=== PATIENT | female | born 1930 | race Caucasian/White ===

== ENCOUNTER 2018-08-26 11:51 | Outpatient (CLI) | payer MEDICARE ==
[~2018-08-26] VITALS: Ht 160 cm; Wt 68.2 kg
--- NOTE | ~2018-08-26 | HEMODYNAMI ---
PATIENT:WAYLON DANIELLE MEDICAL RECORD: [id number] : [birth year] LOCATION:[facility] ADMISSION DATE: 08/26/18 Generatedon:08/26/201812:57 Patient name: WAYLON DANIELLE Patient #: [id number] SSN: : 1930 Date of study: 08/26/2018 Page: Of Hemodynamic Procedure Report Patient Data Patient Demographics Procedure consent was obtained First Name: WAYLON Gender: Female Last Name: SHASHI : 1930 Middle Initial: E Age: 87 year(s) Patient #: [id number] Race: Unknown Additional ID: [id number] Contact details [address]: [address] [place] [address] State: [place] City: [place] Zip code: [address] Past Medical History Allergies: No known allergies Admission Admission Data Admission Date: 08/26/2018 Admission Time: 11:51 Admit Source: Other Lab Results Lab Result Date: 08/26/2018 Lab Result Time: 12:20 CBC Name Units Result Min Max Hematocrit % 39.2 -*(----)-- 42 54 Hemoglobin g/dl 12.8 -*(----)-- 13.5 17.5 Procedure Procedure Types Cath Procedure Diagnostic Procedure Cardioversion External Procedure Description Procedure Date Procedure Date: 08/26/2018 Procedure Start Time: 12:49 Procedure End Time: 12:54 Procedure Staff Name Function Abdulaziz Dewitt MD Performing Physician Robby Beavers MD Additional personnel Finn Teague RT Monitor Kolby Argueta RT Architect Marine Leon Smith RN Nurse Procedure Data Cath Procedure Fluoroscopy Diagnostic fluoroscopy Total fluoroscopy Time: 0 time: 0 min min Diagnostic fluoroscopy Total fluoroscopy dose: 0 dose: 0 mGy mGy Contrast Material Contrast Material Type Amount (ml) Isovue 300 0 Estimated blood loss: 0 ml Procedure Complications No complications Procedure Medications Medication Administration Route Dosage Oxygen etCO2 Nasal cannula 4 l/min Refer to Anesthesia Notes for Sedation Medications Hemodynamics Rest Heart Rate: 75 (bpm) Snapshots Pre Cath Intra NCS Post Cath Vital Signs Time Heart Resp SPO2 etCO2 NIBP (mmHg) Rhythm Pain Sedation Rate (ipm) (%) (mmHg) Status Level (bpm) 12:47:13 100 22 86 0 Measuring NSR 0 (11) 10(A) , No pain 12:47:47 88 19 99 0 149/87(107) NSR 0 (11) 9(A) , No pain 12:52:14 51 19 100 0 136/60(113) NSR 0 (11) 10(A) , No pain 12:55:43 99 0 No Cuff NSR 0 (11) 10(A) , No pain Medications Time Medication Route Dose Verified Delivered Reason Notes Effective ness by by 12:46:15 Oxygen etCO2 4 Abdulaziz Quintero used for Nasal l/min Esdras Smith RN procedure cannula 12:46:18 Refer to Abdulaziz Leon Anesthesia Esdras Smith RN Notes for Sedation Medications Procedure Log Time Note 12:35:45 Informed consent obtained and on chart 12:35:49 Admit Source: Other 12:36:42 Leon Smith RN sent for patient. Start room use. 12:36:49 Time tracking: Regular hours (M-F 7:00 - 5:00) 12:36:52 Plan of Care:Hemodynamics will remain stable., Cardiac rhythm will remain stable., Comfort level will be maintained., Respiratory function will remain adequate., Patient/ family verbilizes understanding of procedure., Procedure tolerated without complication., Recovers from procedure without complications.. 12:37:03 H&P Date Dictated: 08/08/2019 Within 30 days and on chart., H&P Addendum completed by physician on day of procedure. (MUST COMPLETE FOR ALL OUTPATIENTS). 12:38:07 Patient NPO since Midnight. 12:38:15 Patient allergic to No known allergies 12:41:20 Patient received from Pre/Post Procedure Room to CCL 3 Alert and oriented. Tansferred to table in Supine position. 12:41:21 Warm blankets applied, and saul hugger turned on for patient comfort. 12:41:21 Correct patient and procedure confirmed by team. 12:41:23 ECG and BP/O2 sat monitors applied to patient. 12:41:31 Pre-procedure instructions explained to patient. 12:41:32 Pre-op teaching completed and patient verbalized understanding. 12:41:33 Family in waiting room. 12:41:35 Is the patient allergic to Iodine/contrast media? No. 12:41:36 Is patient on blood thinner?Yes 12:41:43 ACC The patient was administered the following blood thiners within the last 24 hours: Eliquis 12:41:45 Patient diabetic? No. 12:41:48 Previous problem with sedation/anesthesia? No ? 12:42:00 Snore? Yes 12:42:02 Sleep apnea? No 12:42:03 Deviated septum? No 12:42:04 Opens mouth fully? Yes 12:42:05 Sticks out tongue? Yes 12:42:08 Airway obstruction? No ? 12:42:11 Dentures? No ? 12:42:15 Robby Beavers MD present and monitoring patient for TIVA. 12:42:23 Quick Combo opened to sterile field. 12:42:26 Quick combo pads placed on patients chest and back. 12:42:36 Patient pain scale 0/10 ?. 12:42:39 IV patent on arrival in left forearm with 0.9% NaCl at [facility]. 12:43:25 Lab Result : Hemoglobin 12.8 g/dl 12:43:25 Lab Result : Hematocrit 39.2 % 12:43:28 Lab results completed and on chart. 12:46:15 Oxygen 4 l/min etCO2 Nasal cannula was administered by Leon Smith RN; used for procedure; 12:46:18 Refer to Anesthesia Notes for Sedation Medications was administered by Leon Smith RN; ; 12:46:40 Alarms reviewed by R. N. 12:46:41 Physician arrived 12:46:41 --------ALL STOP TIME OUT------ 12:46:45 Final Timeout: patient, procedure, and site verified with staff and physician. All members of the team are in agreement. 12:46:54 Physical assessment completed. ASA score P 3 - A patient with severe systemic disease as per Abdulaziz Dewitt MD. 12:47:08 Sedation plan: TIVA Medication:Propofol 12:47:59 Baseline sample Acquired. 12:48:04 Rhythm: atrial fibrillation 12:48:06 Full Disclosure recording started 12:49:00 Procedure started. 12:49:28 Defibrillator synced and charged to 200 Joules. 12:49:30 Shock delivered. 12:51:03 Patient cardioverted to sinus bradycardia. 12:51:05 Procedure ended.(Physican Out) 12:51:24 Fluoroscopy time 00.00 minutes. 12:51:25 Fluoroscopy dose: 0 mGy 12:51:25 Flurop Dose total: 0 12:51:28 Contrast amount:Isovue 300 0ml. 12:51:29 Sharps counted by scrub and verified by R.N. 12:51:36 Post Procedure Pulses reassessed and unchanged 12:51:40 Post-procedure physical assessment completed. ASA score P 3 - A patient with severe systemic disease as per Abdulaziz Dewitt MD. 12:51:44 Post procedure rhythm: sinus bradycardia 12:51:48 Estimated blood loss: 0 ml 12:51:49 Post procedure instruction explained to patient.Patient verbalizes understanding. 12:51:50 Patient needs reinforcement of post procedure teaching. 12:53:31 Procedure and supply charges have been captured, reviewed, submitted and are correct. 12:53:39 Procedure Complication : No complications 12:53:41 Vital chart was stopped 12:53:47 See physician's report for complete and final results. 12:53:55 Report given to Pre/Post Procedure Room. 12:53:58 Patient transfered to Pre/Post Procedure Room with Stretcher. 12:54:00 Procedure ended. 12:54:00 Full Disclosure recording stopped 12:54:05 End room use (Document Last) 12:55:08 Vital chart was started 12:57:04 Vital chart was stopped Device Usage Item Manufacture Quantity Catalog Hospital Part Current Minimal Lot# / Name Number Charge Number [facility]# Code [facility] [employer] 1 [id number] Combo Signature Audit [place] Stage Time Signature Unsigned Intra-Procedure 08/26/2018 Finn Teague 12:57:01 PM RT(R) Signatures Monitor : Finn Teague RT Signature : Date : Time : [facility] [address] [place] [address]
[2018-08-26] MEDS ORDERED: ELIQUIS5 MG PO (12:11)
[2018-08-26] MEDS ORDERED: BETAPACE 80 MG80 MG PO (12:12)
[2018-08-26] MEDS ORDERED: FUROSEMIDE20 MG PO (12:12)
[2018-08-26] MEDS ORDERED: NORVASC5 MG PO (12:13)
[2018-08-26] MEDS ORDERED: ZESTRIL40 MG PO (12:14)
[2018-08-26] MEDS ORDERED: TRAZODONE HCL100 MG PO (12:14)
[2018-08-26] MEDS ORDERED: ULTRAM50 MG PO (12:15)
[2018-08-26] MEDS ORDERED: TENORMIN50 MG PO (12:15)
[2018-08-26 12:27] VITALS: BP 158/86; Ht 160 cm; Wt 68.2 kg
[2018-08-26 12:36] LABS: BASOPHILS 0 % (0-2); EOSINOPHILS 0.9 % (0-7); HEMATOCRIT 39.2 % (36.0-48.0); HEMOGLOBIN 12.8 g/dL (12-16); LYMPHOCYTES 27.6 % (15-50); MCH 31.3 pg (26.0-34.0); MCHC 32.7 g/dL (31.0-37.0); MCV 95.8 fL (80.0-100.0); MEAN PLATELET VOLUME 9.3 fL (7.4-10.4); MONOCYTES 10.8 % (2-11); NEUTROPHILS 60.7 % (40-80); PLATELET COUNT 174 10x3/uL (130-400); RBC 4.09 10x6/uL (4.00-5.40); RDW 13.5 % (11.5-14.5); WBC 3.5 10x3/uL (4.8-10.8)
[2018-08-26 12:43] LABS: CALCIUM 8.9 mg/dL (8.5-10.1); CARBON DIOXIDE 31.6 mmol/L (21.0-32.0); CREATININE - SERUM 0.8 mg/dL (0.6-1.3); INR 1.3 (0.85-1.17); POTASSIUM - SERUM 3.6 mmol/L (3.5-5.1); PROTIME 15.6 SECONDS (11.6-15.0)
[2018-08-26 12:44] LABS: APTT 33.6 SECONDS (22.8-39.4)
--- NOTE | 2018-08-26 13:00 | NUR ---
PT RECEIVED VIA STRETCHER FROM BINDING CEMENTER [facility] CORD FOR RECOVERY. PT DROWSY BUT AWAKE TO VERBAL STIMULI. HR NSR RATE 59, BP 132/51, O2 SAT 98 PLACED ON 1L/NC O2. CALL LIGHT IN REACH, DENIES PAIN OR NEEDS. FAMILY AT BS
--- NOTE | 2018-08-26 13:15 | NUR ---
PT AWAKE VISITING WITH FAMILY, HR 54 NSR. DENIES PAIN OR NEEDS.
--- NOTE | 2018-08-26 13:32 | NUR ---
HR NSR RATE 55. DENIES PAIN OR NEEDS. FAMILY AT BEDSIDE. CALL LIGHT IN REACH.
--- NOTE | 2018-08-26 13:56 | NUR ---
DISCHARGE INSTRUCTIONS COMPLETED W PT AND DAUGHTER VERBALIZED UNDERSTANDING. MONITORS REMOVED, IV DC'D W CATH INTACT. U-P TO DRESS FOR DISCHARGE.
--- NOTE | 2018-08-26 14:05 | NUR ---
PT DISCHARGED VIA WC TO PRIVATE VEHICLE.
== END 2018-08-26 14:05 | disposition home or self-care (01) ==
LOC: D.CATH 11:51
PROVIDERS: Internal Medicine Cardiovascular Disease
DX: I48.91 Unspecified atrial fibrillation (principal)

== ENCOUNTER → 2018-10-24 12:14 | Outpatient (CLI) | payer MEDICARE ==
[2018-08-26 12:27] VITALS: BMI 26.6
[~2018-10-24 12:14] MED LIST: BETAPACE 80 MG80 MG PO; ELIQUIS5 MG PO; FUROSEMIDE20 MG PO; NORVASC5 MG PO; TENORMIN50 MG PO; TRAZODONE HCL100 MG PO; ULTRAM50 MG PO; ZESTRIL40 MG PO
== END | disposition home or self-care (01) ==
LOC: D.RAD 12:14
PROVIDERS: ATTEND Family Medicine
DX: J44.9 Chronic obstructive pulmonary disease, unspecified (principal)

== ENCOUNTER 2019-09-30 14:38 | Inpatient (IN) | payer MEDICARE ==
[~2019-09-30] VITALS: Ht 160 cm; Wt 63.5 kg
[2019-09-30 15:52] LABS: BASOPHILS 0 % (0-2); EOSINOPHILS 0 % (0-7); HEMATOCRIT 25.5 % (36.0-48.0); HEMOGLOBIN 8.4 g/dL (12-16); IMMATURE GRANULOCYTES 0.2 % (0-5); LYMPHOCYTES 8.4 % (15-50); MCH 31.2 pg (26.0-34.0); MCHC 32.9 g/dL (31.0-37.0); MCV 94.8 fL (80.0-100.0); MEAN PLATELET VOLUME 8.8 fL (7.4-10.4); MONOCYTES 5.4 % (2-11); PLATELET COUNT 173 10x3/uL (130-400); RBC 2.69 10x6/uL (4.00-5.40); RDW 15.4 % (11.5-14.5); WBC 6.3 10x3/uL (4.8-10.8)
[2019-09-30 16:22] VITALS: BP 145/76
[2019-09-30 16:33] LABS: CALC OSMOLALITY 288 mosm/kg (275-300); CALCIUM 7.8 mg/dL (8.5-10.1); CARBON DIOXIDE 30.1 mmol/L (21.0-32.0); CHLORIDE - SERUM 105 mmol/L (98-107); CREATININE - SERUM 0.7 mg/dL (0.6-1.3); POTASSIUM - SERUM 3.4 mmol/L (3.5-5.1); SODIUM 143 mmol/L (136-145); UREA NITROGEN 16 mg/dL (7-18); eGFR NON AFRICAN AMERICAN 83 mL/min (90-120)
[2019-09-30 16:39] LABS: ALBUMIN 2.9 g/dL (3.4-5.0); ALKALINE PHOSPHATASE 67 U/L (30-120); ALT (SGPT) 20 U/L (10-68); GLUCOSE 145 mg/dL (74-106); PROTEIN - SERUM 5.3 g/dL (6.4-8.2)
[2019-09-30 18:07] VITALS: BP 139/63
--- NOTE | 2019-09-30 19:00 | NUR ---
Report received from off going nurse. Pt is laying in bed watching tv. Admission assessment, history, med rec and SRS screening completed, see flowsheets for details. Pt requested her home sleep medication, paged Eunice for orders, orders received. No s/s of distress noted. Will continue to monitor.
[2019-09-30 20:01] VITALS: BP 155/65; BMI 24.8
[2019-09-30 20:06] VITALS: BP 155/65
[2019-09-30 23:52] VITALS: BP 109/49
--- NOTE | 2019-10-01 07:15 | NUR ---
RECEIVED PT IN BED AAOX4 STILLAGUAMISH RESP UNLABORED SKIN W/D COLOR PALE BRACE INTACT TO RT LED DENIES ANY PAIN AT THIS TIME
[2019-10-01 08:00] VITALS: BP 117/49
[2019-10-01 09:04] LABS: CALC OSMOLALITY 284 mosm/kg (275-300); CALCIUM 7.6 mg/dL (8.5-10.1); CARBON DIOXIDE 32.3 mmol/L (21.0-32.0); CHLORIDE - SERUM 105 mmol/L (98-107); CREATININE - SERUM 0.7 mg/dL (0.6-1.3); POTASSIUM - SERUM 3.5 mmol/L (3.5-5.1); SODIUM 142 mmol/L (136-145); UREA NITROGEN 19 mg/dL (7-18); eGFR NON AFRICAN AMERICAN 83 mL/min (90-120)
[2019-10-01 09:05] LABS: BASOPHILS 0.2 % (0-2); EOSINOPHILS 0 % (0-7); HEMATOCRIT 21.3 % (36.0-48.0); IMMATURE GRANULOCYTES 0.2 % (0-5); LYMPHOCYTES 18.8 % (15-50); MCH 30.5 pg (26.0-34.0); MCHC 31.9 g/dL (31.0-37.0); MCV 95.5 fL (80.0-100.0); MEAN PLATELET VOLUME 8.7 fL (7.4-10.4); MONOCYTES 9.6 % (2-11); NEUTROPHILS 71.2 % (40-80); PLATELET COUNT 180 10x3/uL (130-400); RBC 2.23 10x6/uL (4.00-5.40); RDW 15.8 % (11.5-14.5); WBC 5.6 10x3/uL (4.8-10.8)
[2019-10-01 09:06] LABS: GLUCOSE 90 mg/dL (74-106)
[2019-10-01 09:14] LABS: HEMOGLOBIN 6.8 g/dL (12-16)
--- NOTE | 2019-10-01 10:05 | NUR ---
#1 UNIT OF PRBCs INFUSION STARTED AT THIS TIME NO S/S OF REACTION
[2019-10-01] MEDS ORDERED: ALENDRONATE SOD35 MG PO (10:20)
[2019-10-01] MEDS ORDERED: COLACE100 MG PO (10:21)
[2019-10-01] MEDS ORDERED: TAPAZOLE 5 MG TA5 MG PO (10:23)
[2019-10-01 11:38] VITALS: BP 112/46
--- NOTE | 2019-10-01 12:30 | MORECARE ---
CASE MANAGEMENT DISCHARGE SUMMARY PATIENT: WAYLON DANIELLE UNIT: [id number] ADM DATE: 09/30/19 AGE: 88 : [birth year] SEX: F ROOM/BED: D.1204 AUTHOR: RICHARD SCALES PHYSICIAN: REFERRING PHYSICIAN: MARC FOSS DO DATE OF SERVICE: 10/01/19 Discharge Plan Patient Name: WAYLON DANIELLE Facility: [facility]:[place] : 1930 Planned Disposition: Anticipated Discharge Date: Discharge Date: Expected LOS: Initial Reviewer: [email or web address] Initial Review Date: 09/30/2019 Generated: 10/01/19 1:30 pm External Providers [facility] Contact Date: Service Request Date: Service Type: Resolution: Reviewer: Comments: Patient Name: WAYLON DANIELLE Page [phone] at 1230 All edits/amendments must be made on the electronic document DICTATION DATE: 10/01/19 1230 BLENDER LABORER: BORIS 10/01/19 1230 RPT#: [id number] DC DATE: STATUS: ADM IN [facility] [address] [place] [address] END OF REPORT
--- NOTE | 2019-10-01 12:39 | MORECARE ---
CASE MANAGEMENT DISCHARGE SUMMARY PATIENT: WAYLON DANIELLE UNIT: [id number] ADM DATE: 09/30/19 AGE: 88 : [birth year] SEX: F ROOM/BED: D.1204 AUTHOR: RICHARD SCALES PHYSICIAN: REFERRING PHYSICIAN: MARC FOSS DO DATE OF SERVICE: 10/01/19 Discharge Plan Patient Name: WAYLON DANIELLE Facility: [facility]:[place] : 1930 Planned Disposition: Anticipated Discharge Date: Discharge Date: Expected LOS: Initial Reviewer: [email or web address] Initial Review Date: 09/30/2019 Generated: 10/01/19 1:38 pm Comments DCP- Discharge Planning Updated by [email or web address]: Josephine Roy on 10/01/19 11:[address] Faxed required information to Margarita Ayon with [facility] per family request. DCPIA - Discharge Planning Initial Assessment Updated by [email or web address]: Josephine Roy on 10/01/19 12:35 pm * Is the patient Alert and Oriented? Yes * How many steps to enter\exit or inside your home? * PCP Dr. Parson * Pharmacy [facility] * Preadmission Environment Home Alone * ADLs Independent * Equipment Shower Chair Walker Wheelchair * List name and contact numbers for known caregivers / representatives who currently or will assist patient after discharge: Kendra Holbrook (dtr) [phone] * Verbal permission to speak to the caregivers and representatives has been obtained from the patient. Yes * Community resources currently utilized None * Please name any agencies selected above. [facility] upon Discharge. * Additional services required to return to the preadmission environment? No * Can the patient safely return to the preadmission environment? Yes * Has this patient been hospitalized within the prior 30 days at any hospital? No Last DP export: 10/01/19 11:30 a Patient Name: WAYLON DANIELLE Page 11278 at 1239 All edits/amendments must be made on the electronic document DICTATION DATE: 10/01/19 1238 CALL CIRCUIT WORKER: BORIS 10/01/19 1238 RPT#: [id number] DC DATE: STATUS: ADM IN [facility] [address] [place] [address] END OF REPORT
[2019-10-01 14:27] LABS: APTT 30.5 SECONDS (22.8-39.4)
[2019-10-01 14:28] LABS: INR 1.19 (0.85-1.17)
[2019-10-01 14:37] LABS: % SATURATION 9 % (15-55); IRON 26 ug/dl (35-150); TOTAL IRON BIND CAPACITY 285 ug/dl (260-445); UNSAT IRON BIND CAPACITY 259 ug/dl (150-375)
--- NOTE | 2019-10-01 15:36 | MORECARE ---
CASE MANAGEMENT DISCHARGE SUMMARY PATIENT: WAYLON DANIELLE UNIT: [id number] ADM DATE: 09/30/19 AGE: 88 : [birth year] SEX: F ROOM/BED: D.1204 AUTHOR: RICHARD SCALES PHYSICIAN: REFERRING PHYSICIAN: MARC FOSS DO DATE OF SERVICE: 10/01/19 Discharge Plan Patient Name: WAYLON DANIELLE Facility: [facility]:[place] : 1930 Planned Disposition: Anticipated Discharge Date: Discharge Date: Expected LOS: Initial Reviewer: [email or web address] Initial Review Date: 09/30/2019 Generated: 10/01/19 4:35 pm Comments DCP- Discharge Planning Updated by [email or web address]: Josephine Roy on 10/01/19 2:[address] CM met with patient to discuss initial discharge planning. Patient is in agreement to proceed with the assessment with her daughter present. Patient reports that she lives at home independently. Patient is alert/oriented, drowsy. Stairs/steps: 0. PCP: Dr. Parson. [facility]acy[facility]. Patient states she have been able to obtain all of her prescribed medications. HHS: No. DME: Walker, w/c, shower chair. Patient gives permission to speak with family members/care givers. Emergency contact: Kendra Holbrook (dtr POA) [phone]. 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 CM discussed the availability of HH, Rehab, DME services. Patient's daughter request [facility] for Dc plan. Patient's insurance will require prior authorization. Patient denies being hospitalized within the past 30 days. Patient denies the use of community resources WEB ASSISTANT. Transportation at time of discharge: Facility. CM will assist with DC plans/needs PRN. DCP- Discharge Planning Updated by [email or web address]: Josephine Roy on 10/01/19 11:[address] Faxed required information to Margarita Ayon with [facility] per family request. DCPIA - Discharge Planning Initial Assessment Updated by [email or web address]: Josephine Roy on 10/01/19 12:35 pm * Is the patient Alert and Oriented? Yes * How many steps to enter\exit or inside your home? * PCP Dr. Parson * Pharmacy [facility] * Preadmission Environment Home Alone * ADLs Independent * Equipment Shower Chair Walker Wheelchair * List name and contact numbers for known caregivers / representatives who currently or will assist patient after discharge: Kendra Holbrook (dtr) [phone] * Verbal permission to speak to the caregivers and representatives has been obtained from the patient. Yes * Community resources currently utilized None * Please name any agencies selected above. [facility] Dis[facility]. * Additional services required to return to the preadmission environment? No * Can the patient safely return to the preadmission environment? Yes * Has this patient been hospitalized within the prior 30 days at any hospital? No Last DP export: 10/01/19 11:39 a Patient Name: WAYLON DANIELLE Page [id number] at 1536 All edits/amendments must be made on the electronic document DICTATION DATE: 10/01/191534 HOSE BUILDER: BORIS 10/01/191534 RPT#: [id number] DC DATE: STATUS: ADM IN [facility] [address] [place] [address] END OF REPORT
[2019-10-01 15:49] LABS: APPEARANCE CLEAR (CLEAR); BILIRUBIN NEGATIVE (NEGATIVE); COLOR YELLOW (YELLOW); GLUCOSE NEGATIVE (NEGATIVE); KETONE NEGATIVE (NEGATIVE); NITRITE NEGATIVE (NEGATIVE); PROTEIN NEGATIVE (NEGATIVE); UROBILINOGEN NORMAL (NORMAL)
[2019-10-01 15:52] LABS: BACTERIA MODERATE /hpf (NEGATIVE); EPITHELIAL CELLS 0-5 /hpf (0-5); RED CELLS - URINE OCC /hpf (0-5); WHITE CELLS - URINE 25-50 /hpf (NEGATIVE)
--- NOTE | 2019-10-01 16:04 | NUR ---
Rehab Prescreening Consult recieved and the chart has been reviewed. She is managed Medicare with [facility] and will require a preauth for rehab. She has a PT and an OT eval ordered but pending. Once completed all information will be submitted to [facility] for their review. Irina Apple RN Clinical Liaison, Rehab
[2019-10-01 19:56] VITALS: BP 119/60
--- NOTE | 2019-10-01 20:00 | NUR ---
RESTING IN BED DENIES PAIN OR NEEDS AT THIS TIME, IMOBLIZER BRACE IN PLACE TO RIGHT LEG, SEE SHIFT ASSESSMENT, CALL LIGHT IN REACH
[2019-10-02 00:04] VITALS: BP 130/60
[2019-10-02 04:30] VITALS: BP 139/59
--- NOTE | 2019-10-02 07:40 | NUR ---
SHE IS PLEASENTLY CONFUSED THIS MORNING. HAS A BRACE TO THE RT LEG. NO IV. SHE IS ASKING FOR A SLEEPING PILL. THE BED ALARM IS ON AND IN PLACE, THE CALL LIGHT IS WITHIN REACH.
[2019-10-02 07:49] VITALS: BP 137/54
[2019-10-02 07:55] LABS: BASOPHILS 0 % (0-2); EOSINOPHILS 0 % (0-7); IMMATURE GRANULOCYTES 0.2 % (0-5); LYMPHOCYTES 12.4 % (15-50); MCH 30.5 pg (26.0-34.0); MCHC 33.1 g/dL (31.0-37.0); MEAN PLATELET VOLUME 8.7 fL (7.4-10.4); MONOCYTES 12.2 % (2-11); NEUTROPHILS 75.2 % (40-80); RDW 16.3 % (11.5-14.5); WBC 5.3 10x3/uL (4.8-10.8)
[2019-10-02 08:09] LABS: ALBUMIN 2.7 g/dL (3.4-5.0); ANION GAP 6.8 mmol/L (8-16); BILIRUBIN - TOTAL 0.9 mg/dL (0.2-1.3); CALCIUM 7.7 mg/dL (8.5-10.1); CARBON DIOXIDE 32.6 mmol/L (21.0-32.0); CREATININE - SERUM 0.8 mg/dL (0.6-1.3); MAGNESIUM - SERUM 2.1 mg/dL (1.8-2.4); POTASSIUM - SERUM 3.4 mmol/L (3.5-5.1); PROTEIN - SERUM 5.2 g/dL (6.4-8.2)
[2019-10-02 08:19] LABS: HEMATOCRIT 27.5 % (36.0-48.0); HEMOGLOBIN 9.1 g/dL (12-16); MCV 92.3 fL (80.0-100.0); PLATELET COUNT 141 10x3/uL (130-400); RBC 2.98 10x6/uL (4.00-5.40)
--- NOTE | 2019-10-02 08:24 | MORECARE ---
CASE MANAGEMENT DISCHARGE SUMMARY PATIENT: WAYLON DANIELLE UNIT: [id number] ADM DATE: 09/30/19 AGE: 88 : [birth year] SEX: F ROOM/BED: D.1204 AUTHOR: RICHARD SCAELS PHYSICIAN: REFERRING PHYSICIAN: MARC FOSS DO DATE OF SERVICE: 10/02/19 Discharge Plan Patient Name: WAYLON DANIELLE Facility: [facility]:[place] : 1930 Planned Disposition: Anticipated Discharge Date: Discharge Date: Expected LOS: Initial Reviewer: [email or web address] Initial Review Date: 09/30/2019 Generated: 10/02/19 9:24 am Comments DCP- Discharge Planning Updated by [email or web address]: Josephine Roy on 10/01/19 2:[address] CM met with patient to discuss initial discharge planning. Patient is in agreement to proceed with the assessment with her daughter present. Patient reports that she lives at home independently. Patient is alert/oriented, drowsy. Stairs/steps: 0. PCP: Dr. Parson. [facility]acy[facility]. Patient states she have been able to obtain all of her prescribed medications. HHS: No. DME: Walker, w/c, shower chair. Patient gives permission to speak with family members/care givers. Emergency contact: Kendra Holbrook (dtr POA) [phone]. 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 CM discussed the availability of HH, Rehab, DME services. Patient's daughter request [facility] for Dc plan. Patient's insurance will require prior authorization. Patient denies being hospitalized within the past 30 days. Patient denies the use of community resources MACHINE CHOCOLATE MOLDER. Transportation at time of discharge: Facility. CM will assist with DC plans/needs PRN. DCP- Discharge Planning Updated by [email or web address]: Josephine Roy on 10/01/19 11:[address] Faxed required information to Margarita Ayon with [facility] per family request. DCPIA - Discharge Planning Initial Assessment Updated by [email or web address]: Josephine Roy on 10/01/19 12:35 pm * Is the patient Alert and Oriented? Yes * How many steps to enter\exit or inside your home? * PCP Dr. Parson * Pharmacy [facility] * Preadmission Environment Home Alone * ADLs Independent * Equipment Shower Chair Walker Wheelchair * List name and contact numbers for known caregivers / representatives who currently or will assist patient after discharge: Kendra Holbrook (dtr) [phone] * Verbal permission to speak to the caregivers and representatives has been obtained from the patient. Yes * Community resources currently utilized None * Please name any agencies selected above. [facility] Dis[facility]. * Additional services required to return to the preadmission environment? No * Can the patient safely return to the preadmission environment? Yes * Has this patient been hospitalized within the prior 30 days at any hospital? No Last DP export: 10/01/19 2:36 p Patient Name: WAYLON DANIELLE Page [phone] at 0824 All edits/amendments must be made on the electronic document DICTATION DATE: 10/02/19823 CLOSET BUILDER: BORIS 10/02/19823 RPT#: [id number] DC DATE: STATUS: ADM IN [facility] [address] [place] [address] END OF REPORT
--- NOTE | 2019-10-02 11:30 | NUR ---
IV REMOVED, DISCHARGE PAPERWORK GONE OVER. TAKEN OUT BY WHEELCHAIR.
--- NOTE | 2019-10-02 11:39 | MORECARE ---
CASE MANAGEMENT DISCHARGE SUMMARY PATIENT: WAYLON DANIELLE UNIT: [id number] ADM DATE: 09/30/19 AGE: 88 : [birth year] SEX: F ROOM/BED: D.1204 AUTHOR: RICHARD SCALES PHYSICIAN: REFERRING PHYSICIAN: MARC FOSS DO DATE OF SERVICE: 10/02/19 Discharge Plan Patient Name: WAYLON DANIELLE Facility: [facility]:[place] : 1930 Planned Disposition: Anticipated Discharge Date: Discharge Date: Expected LOS: Initial Reviewer: [email or web address] Initial Review Date: 09/30/2019 Generated: 10/02/19 12:38 pm DCP- Discharge Planning Updated by [email or web address]: Josephine Roy on 10/01/19 2:[address] CM met with patient to discuss initial discharge planning. Patient is in agreement to proceed with the assessment with her daughter present. Patient reports that she lives at home independently. Patient is alert/oriented, drowsy. Stairs/steps: 0. PCP: Dr. Parson. [facility]acy: [facility]. Patient states she have been able to obtain all of her prescribed medications. HHS: No. DME: Walker, w/c, shower chair. Patient gives permission to speak with family members/care givers. Emergency contact: Kendra Holbrook (dtr POA) [phone]. 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 CM discussed the availability of HH, Rehab, DME services. Patient's daughter request [facility] for Dc plan. Patient's insurance will require prior authorization. Patient denies being hospitalized within the past 30 days. 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 Transportation at time of discharge: Facility. CM will assist with DC plans/needs PRN. DCP- Discharge Planning Updated by [email or web address]: Josephine Roy on 10/01/19 11:[address] Faxed required information to Margarita Ayon with [facility] per family request. DCPIA - Discharge Planning Initial Assessment Updated by [email or web address]: Josephine Roy on 10/01/19 12:35 pm * Is the patient Alert and Oriented? Yes * How many steps to enter\exit or inside your home? * PCP Dr. Parson * Pharmacy [facility] * Preadmission Environment Home Alone * ADLs Independent * Equipment Shower Chair Walker Wheelchair * List name and contact numbers for known caregivers / representatives who currently or will assist patient after discharge: Kendra Holbrook (dtr) [phone] * Verbal permission to speak to the caregivers and representatives has been obtained from the patient. Yes * Community resources currently utilized None * Please name any agencies selected above. [facility] Dis[facility]. * Additional services required to return to the preadmission environment? No * Can the patient safely return to the preadmission environment? Yes * Has this patient been hospitalized within the prior 30 days at any hospital? No Last DP export: 10/02/19 7:24 a Patient Name: WAYLON DANIELLE Page [id number] at 1139 All edits/amendments must be made on the electronic document DICTATION DATE: 10/02/191137 TITLE AGENT: BORIS 10/02/198 RPT#: [id number] DC DATE: STATUS: ADM IN [facility] [address] [place] [address] END OF REPORT
[2019-10-02 11:50] VITALS: BP 171/85
--- NOTE | 2019-10-02 15:56 | MORECARE ---
CASE MANAGEMENT DISCHARGE SUMMARY PATIENT: WAYLON DANIELLE UNIT: [id number] ADM DATE: 09/30/19 AGE: 88 : [birth year] SEX: F ROOM/BED: D.1204 AUTHOR: RICHARD SCALES PHYSICIAN: REFERRING PHYSICIAN: MARC FOSS DO DATE OF SERVICE: 10/02/19 Discharge Plan Patient Name: WAYLON DANIELLE Facility: [facility]:[place] : 1930 Planned Disposition: Anticipated Discharge Date: Discharge Date: Expected LOS: Initial Reviewer: [id number] Initial Review Date: 09/30/2019 Generated: 10/02/19 4:55 pm DCP- Discharge Planning Updated by [email or web address]: Josephine Roy on 10/01/19 2:[address] CM met with patient to discuss initial discharge planning. Patient is in agreement to proceed with the assessment with her daughter present. Patient reports that she lives at home independently. Patient is alert/oriented, drowsy. Stairs/steps: 0. PCP: Dr. Parson. Pharmacy: [facility]. Patient states she have been able to obtain all of her prescribed medications. HHS: No. DME: Walker, w/c, shower chair. Patient gives permission to speak with family members/care givers. Emergency contact: Kendra Holbrook (dtr POA) [phone]. 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 CM discussed the availability of HH, Rehab, DME services. Patient's daughter request [facility] for Dc plan. Patient's insurance will require prior authorization. Patient denies being hospitalized within the past 30 days. Patient denies the use of community resources CROWN AND BRIDGE TECHNICIAN. Transportation at time of discharge: Facility. CM will assist with DC plans/needs PRN. DCP- Discharge Planning Updated by [id number]: Josephine Roy on 10/01/19 11:[address] Faxed required information to Margarita Ayon with [facility] per family request. DCPIA - Discharge Planning Initial Assessment Updated by [email or web address]: Josephine Roy on 10/01/19 12:35 pm * Is the patient Alert and Oriented? Yes * How many steps to enter\exit or inside your home? * PCP Dr. Parson * Pharmacy [facility] * Preadmission Environment Home Alone * ADLs Independent * Equipment Shower Chair Walker Wheelchair * List name and contact numbers for known caregivers / representatives who currently or will assist patient after discharge: Kendra Holbrook (dtr) [phone] * Verbal permission to speak to the caregivers and representatives has been obtained from the patient. Yes * Community resources currently utilized None * Please name any agencies selected above. [facility]. * Additional services required to return to the preadmission environment? No * Can the patient safely return to the preadmission environment? Yes * Has this patient been hospitalized within the prior 30 days at any hospital? No Coverage Notice Reviewer: [id number] Susannah Thomas Notice Issued Date-Time: 09/30/2019 16:01 Notice Type: IM Admission Notice Notice Delivered To: Patient Relationship to Patient: Butcher Or Smallgoods Maker Name: Delivery Method: HAND - Hand Delivered Evelina Days: Prior Verbal Notification: Recipient Understood Notice: Recipient Signature: Med Rec Note Co-signed by Attending: Coverage Notice Comment: signed in the ER. Last DP export: 10/02/19 10:39 a Patient Name: WAYLON DANIELLE Page [id number] at 1556 All edits/amendments must be made on the electronic document DICTATION DATE: 10/02/191554 INSIDE SALES RECRUITER: BORIS 10/02/191554 RPT#: [id number] DC DATE: STATUS: ADM IN [facility] [address] [place] [address] END OF REPORT
[2019-10-02 16:21] VITALS: Ht 160 cm; Wt 63.5 kg
--- NOTE | 2019-10-02 16:37 | NUR ---
OT NOTE: PT COMPLETED BED MOB TASKS WITH MOD A X2. PT COMPLETED SIT TO STAND WITH MOD A XS AND MAINTAINED WT BEARING STATUS. PT COMPLETED BATHING TASKS WITH MOD A. [address] D[address]SHANA LE[address]OTA
[2019-10-02 16:49] VITALS: BP 148/70
--- NOTE | 2019-10-02 17:11 | MORECARE ---
CASE MANAGEMENT DISCHARGE SUMMARY PATIENT: WAYLON DANIELLE UNIT: [id number] ADM DATE: 09/30/19 AGE: 88 : [birth year] SEX: F ROOM/BED: D.1204 AUTHOR: RICHARD SCALES PHYSICIAN: REFERRING PHYSICIAN: MARC FOSS DO DATE OF SERVICE: 10/02/19 Discharge Plan Patient Name: WAYLON DANIELLE Facility: [facility]:[place] : 1930 Planned Disposition: Anticipated Discharge Date: Discharge Date: Expected LOS: Initial Reviewer: [email or web address] Initial Review Date: 09/30/2019 Generated: 10/02/19 6:11 pm DCP- Discharge Planning Updated by [id number]: Josephine Roy on 10/01/19 2:[address] CM met with patient to discuss initial discharge planning. Patient is in agreement to proceed with the assessment with her daughter present. Patient reports that she lives at home independently. Patient is alert/oriented, drowsy. Stairs/steps: 0. PCP: Dr. Parson. Pharmacy: [facility]. Patient states she have been able to obtain all of her prescribed medications. HHS: No. DME: Walker, w/c, shower chair. Patient gives permission to speak with family members/care givers. Emergency contact: Kendra Holbrook (dtr POA) [phone]. 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 CM discussed the availability of HH, Rehab, DME services. Patient's daughter request [facility] for Dc plan. Patient's insurance will require prior authorization. Patient denies being hospitalized within the past 30 days. Patient denies the use of community resources TELEGRAPH SERVICE RATER. Transportation at time of discharge: Facility. CM will assist with DC plans/needs PRN. DCP- Discharge Planning Updated by [id number]: Josephine Roy on 10/01/19 11:[address] Faxed required information to Margarita Ayon with [facility] per family request. DCPIA - Discharge Planning Initial Assessment Updated by [email or web address]: Josephine Roy on 10/01/19 12:35 pm * Is the patient Alert and Oriented? Yes * How many steps to enter\exit or inside your home? * PCP Dr. Parson * Pharmacy [facility] * Preadmission Environment Home Alone * ADLs Independent * Equipment Shower Chair Walker Wheelchair * List name and contact numbers for known caregivers / representatives who currently or will assist patient after discharge: Kendra Holbrook (dtr) [phone] * Verbal permission to speak to the caregivers and representatives has been obtained from the patient. Yes * Community resources currently utilized None * Please name any agencies selected above. [facility]. * Additional services required to return to the preadmission environment? No * Can the patient safely return to the preadmission environment? Yes * Has this patient been hospitalized within the prior 30 days at any hospital? No Coverage Notice Reviewer: [id number] Susannah Thomas Notice Issued Date-Time: 09/30/2019 16:01 Notice Type: IM Admission Notice Notice Delivered To: Patient Relationship to Patient: Apparatus Operator Name: Delivery Method: HAND - Hand Delivered Evelina Days: Prior Verbal Notification: Recipient Understood Notice: Recipient Signature: Med Rec Note Co-signed by Attending: Coverage Notice Comment: signed in the ER. Last DP export: 10/02/19 2:56 p Patient Name: WAYLON DANIELLE Page [id number] at 1711 All edits/amendments must be made on the electronic document DICTATION DATE: 10/02/191710 SR. STRATEGIC SOURCING MANAGER: BORIS 10/02/191710 RPT#: [id number] DC DATE: STATUS: ADM IN [facility] [address] [place] [address] END OF REPORT
--- NOTE | 2019-10-02 18:08 | NUR ---
BRACE TO THE RIGHT LEG, DENIES ANY NEED. USING THE BEDPAN WHEN NEEDING.
--- NOTE | 2019-10-02 20:00 | NUR ---
ALERT RESTING IN BED, IMOBLIZER IN PLACE TO RIGHT LEG, DENIES PAIN OR NEEDS AT THIS TIME, SEE SHIFT ASSESSMENT, CALL LIGHT IN REACH
[2019-10-02 20:42] VITALS: BP 141/68
[2019-10-03 00:33] VITALS: BP 145/74
[2019-10-03 04:39] VITALS: BP 134/62
[2019-10-03 07:23] VITALS: BP 134/68
[2019-10-03 07:40] LABS: BASOPHILS 0 % (0-2); EOSINOPHILS 0 % (0-7); HEMOGLOBIN 8.7 g/dL (12-16); IMMATURE GRANULOCYTES 0.3 % (0-5); LYMPHOCYTES 11.4 % (15-50); MCH 30.3 pg (26.0-34.0); MCHC 32.2 g/dL (31.0-37.0); MCV 94.1 fL (80.0-100.0); MEAN PLATELET VOLUME 9.1 fL (7.4-10.4); MONOCYTES 13.1 % (2-11); NEUTROPHILS 75.2 % (40-80); RBC 2.87 10x6/uL (4.00-5.40); RDW 15.7 % (11.5-14.5); WBC 6.5 10x3/uL (4.8-10.8)
[2019-10-03 07:51] LABS: ALBUMIN 2.5 g/dL (3.4-5.0); ALKALINE PHOSPHATASE 62 U/L (30-120); ALT (SGPT) 12 U/L (10-68); BILIRUBIN - TOTAL 1.31 mg/dL (0.2-1.3); CALC OSMOLALITY 270 mosm/kg (275-300); CALCIUM 7.7 mg/dL (8.5-10.1); CARBON DIOXIDE 30.8 mmol/L (21.0-32.0); CHLORIDE - SERUM 101 mmol/L (98-107); CREATININE - SERUM 0.7 mg/dL (0.6-1.3); GLUCOSE 98 mg/dL (74-106); POTASSIUM - SERUM 3.6 mmol/L (3.5-5.1); PROTEIN - SERUM 5.3 g/dL (6.4-8.2); SODIUM 135 mmol/L (136-145); UREA NITROGEN 15 mg/dL (7-18); eGFR NON AFRICAN AMERICAN 83 mL/min (90-120)
[2019-10-03 07:56] LABS: PLATELET COUNT 176 10x3/uL (130-400)
--- NOTE | 2019-10-03 08:36 | NUR ---
PT RESTING IN BED, FINISHING BREAKFAST. RESP EVEN AND UNLABORED. PT REPORTS PAIN 5/10 AT THIS TIME. SALINE LOC TO LEFT FOREARM. SITE WITHOUT REDNESS OR EDEMA. PPPX 4. INTERNAL ROTATION NOTED TO LEFT LOWER EXTREMITY. PT DENIES FURTHER NEEDS AT THIS TIME. CL WITHIN REACH. ENCOURAGED TO CALL WITH NEEDS. CONTINUE POC
[2019-10-03 11:20] VITALS: BP 135/58
--- NOTE | 2019-10-03 11:41 | MORECARE ---
CASE MANAGEMENT DISCHARGE SUMMARY PATIENT: WAYLON DANIELLE UNIT: [id number] ADM DATE: 09/30/19 AGE: 88 : [birth year] SEX: F ROOM/BED: D.1204 AUTHOR: YORDY,DOC PHYSICIAN: REFERRING PHYSICIAN: MARC OFSS DO DATE OF SERVICE: 10/03/19 Discharge Plan Patient Name: WAYLON DANIELLE Facility: [facility]:[place] : 1930 Planned Disposition: Anticipated Discharge Date: Discharge Date: Expected LOS: Initial Reviewer: [id number] Initial Review Date: 09/30/2019 Generated: 10/03/19 12:40 pm Comments DCP- Discharge Planning Updated by [id number]: Josephine Roy on 10/03/19 10:[address] CM contacted Margarita B. this morning, the prior authorization for the patient's insurance was sent in 10/02, but she has not heard back from them as yet. DCP- Discharge Planning Updated by [email or web address]: Josephine Roy on 10/01/19 2:[address] CM met with patient to discuss initial discharge planning. Patient is in agreement to proceed with the assessment with her daughter present. Patient reports that she lives at home independently. Patient is alert/oriented, drowsy. Stairs/steps: 0. PCP: Dr. Parson. Pharmacy: [facility]. Patient states she have been able to obtain all of her prescribed medications. HHS: No. DME: Walker, w/c, shower chair. Patient gives permission to speak with family members/care givers. Emergency contact: Kendra Holbrook (dtr POA) [phone]. Patient is Independent with all ADL's, medication management CROWN POUNCER. CM discussed the availability of HH, Rehab, DME services. Patient's daughter request [facility] re[facility] for Dc plan. Patient's insurance will require prior authorization. Patient denies being hospitalized within the past 30 days. Patient denies the use of community resources CROWN POUNCER. Transportation at time of discharge: Facility. CM will assist with DC plans/needs PRN. DCP- Discharge Planning Updated by [email or web address]: Josephine Roy on 10/01/19 11:[address] Faxed required information to Margarita Ayon with [facility] per family request. DCPIA - Discharge Planning Initial Assessment Updated by [id number]: Josephine Roy on 10/01/19 12:35 pm * Is the patient Alert and Oriented? Yes * How many steps to enter\exit or inside your home? * PCP Dr. Parson * Pharmacy [facility] * Preadmission Environment Home Alone * ADLs Independent * Equipment Shower Chair Walker Wheelchair * List name and contact numbers for known caregivers / representatives who currently or will assist patient after discharge: Kendra Holbrook (dtr) [phone] * Verbal permission to speak to the caregivers and representatives has been obtained from the patient. Yes * Community resources currently utilized None * Please name any agencies selected above. [facility]. * Additional services required to return to the preadmission environment? No * Can the patient safely return to the preadmission environment? Yes * Has this patient been hospitalized within the prior 30 days at any hospital? No Coverage Notice Reviewer: [id number] Susannah Thomas Notice Issued Date-Time: 09/30/2019 16:01 Notice Type: IM Admission Notice Notice Delivered To: Patient Relationship to Patient: Biztalk Software Developer Name: Delivery Method: HAND - Hand Delivered Evelina Days: Prior Verbal Notification: Recipient Understood Notice: Recipient Signature: Med Rec Note Co-signed by Attending: Coverage Notice Comment: signed in the ER. Last DP export: 10/02/19 4:11 p Patient Name: WAYLON DANIELEL Page [id number] at 1141 All edits/amendments must be made on the electronic document DICTATION DATE: 10/03/19 1140 METAL TILE LATHER: BORIS 10/03/19 1140 RPT#: [id number] DC DATE: STATUS: ADM IN [facility] [address] [place] [address] END OF REPORT
--- NOTE | 2019-10-03 13:16 | MORECARE ---
CASE MANAGEMENT DISCHARGE SUMMARY PATIENT: WAYLON DANIELLE UNIT: [id number] ADM DATE: 09/30/19 AGE: 88 : [birth year] SEX: F ROOM/BED: D.1204 AUTHOR: RICHARD SCALES PHYSICIAN: REFERRING PHYSICIAN: MARC FOSS DO DATE OF SERVICE: 10/03/19 Discharge Plan Patient Name: WAYLON DANIELLE Facility: [facility]:[place] : 1930 Planned Disposition: Anticipated Discharge Date: Discharge Date: Expected LOS: Initial Reviewer: [email or web address] Initial Review Date: 09/30/2019 Generated: 10/03/19 2:15 pm Comments DCP- Discharge Planning Updated by [id number]: Josephine Roy on 10/03/19 12:[address] Telephone call from [place], with patient's insurance and patient has been authorized to go into a skilled bed at [facility]hab. Auth #[id number]. The nursing facility cannot pick pulling machine operator today, but will pick pulling machine operator tomorrow @10:00. Patient will go into 303 and report can be called to [phone]. Patient will discharge to a Skilled bed. DCP- Discharge Planning Updated by [id number]: Josephine Roy on 10/03/19 10:[address] CM contacted Margarita Borges. this morning, the prior authorization for the patient's insurance was sent in 10/02, but she has not heard back from them as yet. DCP- Discharge Planning Updated by [email or web address]: Josephine Roy on 10/01/19 2:[address] CM met with patient to discuss initial discharge planning. Patient is in agreement to proceed with the assessment with her daughter present. Patient reports that she lives at home independently. Patient is alert/oriented, drowsy. Stairs/steps: 0. PCP: Dr. Parson. [facility]acy[facility]. Patient states she have been able to obtain all of her prescribed medications. HHS: No. DME: Hardeep, w/c, shower chair. Patient gives permission to speak with family members/care givers. Emergency contact: Kendra Holbrook (dtr POA) [phone]. 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 CM discussed the availability of HH, Rehab, DME services. Patient's daughter request [facility] for Dc plan. Patient's insurance will require prior authorization. Patient denies being hospitalized within the past 30 days. Patient denies the use of community resources CRIMINAL JUSTICE TEACHER. Transportation at time of discharge: Facility. CM will assist with DC plans/needs PRN. DCP- Discharge Planning Updated by [id number]: Josephine Roy on 10/01/19 11:[address] Faxed required information to Margarita Ayon with [facility] per family request. DCPIA - Discharge Planning Initial Assessment Updated by [email or web address]: Josephine Roy on 10/01/19 12:35 pm * Is the patient Alert and Oriented? Yes * How many steps to enter\exit or inside your home? * PCP Dr. Parson * [facility] * Preadmission Environment Home Alone * ADLs Independent * Equipment Shower Chair Walker Wheelchair * List name and contact numbers for known caregivers / representatives who currently or will assist patient after discharge: Kendra Holbrook (dtr) [phone] * Verbal permission to speak to the caregivers and representatives has been obtained from the patient. Yes * Community resources currently utilized None * Please name any agencies selected above. [facility]. * Additional services required to return to the preadmission environment? No * Can the patient safely return to the preadmission environment? Yes * Has this patient been hospitalized within the prior 30 days at any hospital? No Coverage Notice Reviewer: [id number] Susannah Thomas Notice Issued Date-Time: 09/30/2019 16:01 Notice Type: IM Admission Notice Notice Delivered To: Patient Relationship to Patient: Commission Sales Associate Name: Delivery Method: HAND - Hand Delivered Evelina Days: Prior Verbal Notification: Recipient Understood Notice: Recipient Signature: Med Rec Note Co-signed by Attending: Coverage Notice Comment: signed in the ER. Last DP export: 10/03/19 10:41 a Patient Name: WAYLON DANIELLE Page [id number] at 1316 All edits/amendments must be made on the electronic document DICTATION DATE: 10/03/19 1315 LUNCHROOM ATTENDANT: BORIS 10/03/19 1315 RPT#: [id number] DC DATE: STATUS: ADM IN [facility] [address] [facility] [place] [address] END OF REPORT
--- NOTE | 2019-10-03 13:25 | MORECARE ---
CASE MANAGEMENT DISCHARGE SUMMARY PATIENT: WAYLON DANIELLE UNIT: [id number] ADM DATE: 09/30/19 AGE: 88 : [birth year] SEX: F ROOM/BED: D.1204 AUTHOR: RICHARD SCALES PHYSICIAN: REFERRING PHYSICIAN: MARC FOSS DO DATE OF SERVICE: 10/03/19 Discharge Plan Patient Name: WAYLON DANIELLE Facility: [facility]:[place] : 1930 Planned Disposition: Anticipated Discharge Date: Discharge Date: Expected LOS: Initial Reviewer: [id number] Initial Review Date: 09/30/2019 Generated: 10/03/19 2:24 pm Comments DCP- Discharge Planning Updated by [email or web address]: Josephine Roy on 10/03/19 12:[address] Telephone call from [place], with patient's insurance and patient has been authorized to go into a skilled bed at [facility]hab. Auth #[id number]. The nursing facility cannot pickle water pump operator today, but will pickle water pump operator tomorrow @10:00. Patient will go into 303 and report can be called to [phone]. Patient will discharge to a Skilled bed. DCP- Discharge Planning Updated by [id number]: Josephine Roy on 10/03/19 10:[address] CM contacted Margarita Borges. this morning, the prior authorization for the patient's insurance was sent in 10/02, but she has not heard back from them as yet. DCP- Discharge Planning Updated by [id number]: Josephine Roy on 10/01/19 2:[address] CM met with patient to discuss initial discharge planning. Patient is in agreement to proceed with the assessment with her daughter present. Patient reports that she lives at home independently. Patient is alert/oriented, drowsy. Stairs/steps: 0. PCP: Dr. Parson. Pharmacy: [facility]. Patient states she have been able to obtain all of her prescribed medications. HHS: No. DME: Hardeep, w/c, shower chair. Patient gives permission to speak with family members/care givers. Emergency contact: Kendra Holbrook (dtr POA) [phone]. 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 CM discussed the availability of HH, Rehab, DME services. Patient's daughter request [facility] for Dc plan. Patient's insurance will require prior authorization. Patient denies being hospitalized within the past 30 days. Patient denies the use of community resources SHOTBLAST OPERATOR. Transportation at time of discharge: Facility. CM will assist with DC plans/needs PRN. DCP- Discharge Planning Updated by [id number]: Josephine Roy on 10/01/19 11:[address] Faxed required information to Margarita Ayon with [facility] per family request. DCPIA - Discharge Planning Initial Assessment Updated by [id number]: Josephine Roy on 10/01/19 12:35 pm * Is the patient Alert and Oriented? Yes * How many steps to enter\exit or inside your home? * PCP Dr. Parson * [facility] * Preadmission Environment Home Alone * ADLs Independent * Equipment Shower Chair Walker Wheelchair * List name and contact numbers for known caregivers / representatives who currently or will assist patient after discharge: Kendra Holbrook (dtr) [phone] * Verbal permission to speak to the caregivers and representatives has been obtained from the patient. Yes * Community resources currently utilized None * Please name any agencies selected above. [facility]. * Additional services required to return to the preadmission environment? No * Can the patient safely return to the preadmission environment? Yes * Has this patient been hospitalized within the prior 30 days at any hospital? No Coverage Notice Reviewer: [id number] Susannah Thomas Notice Issued Date-Time: 09/30/2019 16:01 Notice Type: IM Admission Notice Notice Delivered To: Patient Relationship to Patient: Caisson Worker Name: Delivery Method: HAND - Hand Delivered Evelina Days: Prior Verbal Notification: Recipient Understood Notice: Recipient Signature: Med Rec Note Co-signed by Attending: Coverage Notice Comment: signed in the ER. Last DP export: 10/03/19 12:16 p Patient Name: WAYLON DANIELLE Page [id number] at 1325 All edits/amendments must be made on the electronic document DICTATION DATE: 10/03/19 1324 CROCHETER HAND: BORIS 10/03/19 1324 RPT#: [id number] DC DATE: STATUS: ADM IN [facility] [address] [facility] [place] [address] END OF REPORT
--- NOTE | 2019-10-03 14:04 | MORECARE ---
CASE MANAGEMENT DISCHARGE SUMMARY PATIENT: WAYLON DANIELLE UNIT: [id number] ADM DATE: 09/30/19 AGE: 88 : [birth year] SEX: F ROOM/BED: D.1204 AUTHOR: YORDY,DOC PHYSICIAN: REFERRING PHYSICIAN: MARC FOSS DO DATE OF SERVICE: 10/03/19 Discharge Plan Patient Name: WAYLON DANIELLE Facility: [facility]:[place] : 1930 Planned Disposition: Nursing Home Facility Anticipated Discharge Date: 10/03/19 Discharge Date: Expected LOS: 3 Initial Reviewer: [email or web address] Initial Review Date: 09/30/2019 Generated: 10/03/19 3:04 pm Comments DCP- Discharge Planning Updated by [id number]: Josephine Roy on 10/03/19 12:[address] Telephone call from [place], with patient's insurance and patient has been authorized to go into a skilled bed at [facility]. Auth #[id number]. The nursing facility cannot poultry picking machine tender today, but will poultry picking machine tender tomorrow @10:00. Patient will go into 303 and report can be called to [phone]. Patient will discharge to a Skilled bed. DCP- Discharge Planning Updated by [id number]: Josephine Roy on 10/03/19 10:[address] CM contacted Margarita Borges. this morning, the prior authorization for the patient's insurance was sent in 10/02, but she has not heard back from them as yet. DCP- Discharge Planning Updated by [id number]: Josephine Roy on 10/01/19 2:[address] CM met with patient to discuss initial discharge planning. Patient is in agreement to proceed with the assessment with her daughter present. Patient reports that she lives at home independently. Patient is alert/oriented, drowsy. Stairs/steps: 0. PCP: Dr. Parson. [facility]acy[facility]. Patient states she have been able to obtain all of her prescribed medications. HHS: No. DME: Walker, w/c, shower chair. Patient gives permission to speak with family members/care givers. Emergency contact: Kendra Holbrook (dtr POA) [phone]. Patient is Independent with all ADL's, medication management PICK PACK WORKER. CM discussed the availability of HH, Rehab, DME services. Patient's daughter request [facility] for Dc plan. Patient's insurance will require prior authorization. Patient denies being hospitalized within the past 30 days. Patient denies the use of community resources PICK PACK WORKER. Transportation at time of discharge: Facility. CM will assist with DC plans/needs PRN. DCP- Discharge Planning Updated by [id number]: Josephine Roy on 10/01/19 11:[address] Faxed required information to Margarita Gabo with [facility] per family request. DCPIA - Discharge Planning Initial Assessment Updated by [id number]: Josephine Roy on 10/01/19 12:35 pm * Is the patient Alert and Oriented? Yes * How many steps to enter\exit or inside your home? * PCP Dr. Parson * Pharmacy [facility] * Preadmission Environment Home Alone * ADLs Independent * Equipment Shower Chair Walker Wheelchair * List name and contact numbers for known caregivers / representatives who currently or will assist patient after discharge: Kendra Holbrook (dtr) [phone] * Verbal permission to speak to the caregivers and representatives has been obtained from the patient. Yes * Community resources currently utilized None * Please name any agencies selected above. [facility] upon Discharge. * Additional services required to return to the preadmission environment? No * Can the patient safely return to the preadmission environment? Yes * Has this patient been hospitalized within the prior 30 days at any hospital? No Coverage Notice Reviewer: [id number] Susannah Thomas Notice Issued Date-Time: 09/30/2019 16:01 Notice Type: IM Admission Notice Notice Delivered To: Patient Relationship to Patient: Movie Projectionist Name: Delivery Method: HAND - Hand Delivered Evelina Days: Prior Verbal Notification: Recipient Understood Notice: Recipient Signature: Med Rec Note Co-signed by Attending: Coverage Notice Comment: signed in the ER. Last DP export: 10/03/19 12:25 p Patient Name: WAYLON DANIELLE Page [id number] at 1404 All edits/amendments must be made on the electronic document DICTATION DATE: 10/03/19 1404 ENVIRONMENTAL SYSTEMS COORDINATOR: BORIS 10/03/19 1404 RPT#: [id number] DC DATE: STATUS: ADM IN [facility] [address] [place] [address] END OF REPORT
--- NOTE | 2019-10-03 14:13 | MORECARE ---
CASE MANAGEMENT DISCHARGE SUMMARY PATIENT: WAYLON DANIELLE UNIT: [id number] ADM DATE: 09/30/19 AGE: 88 : [birth year] SEX: F ROOM/BED: D.1204 AUTHOR: YORDY,DOC PHYSICIAN: REFERRING PHYSICIAN: MARC FOSS DO DATE OF SERVICE: 10/03/19 Discharge Plan Patient Name: WAYLON DANIELLE Facility: [facility]:[place] : 1930 Planned Disposition: Detention Facility Anticipated Discharge Date: 10/03/19 Discharge Date: Expected LOS: 3 Initial Reviewer: [id number] Initial Review Date: 09/30/2019 Generated: 10/03/19 3:13 pm Comments DCP- Discharge Planning Updated by [id number]: Josephine Roy on 10/03/19 1:[address] Telephone call from [place], with patient's insurance and patient has been authorized to go into a skilled Medicare bed at [facility]. Auth #[id number]. The nursing facility cannot citrus picker today, but will citrus picker tomorrow @10:00. Patient will go into 303 and report can be called to [phone]. Patient will discharge to a Skilled bed. DCP- Discharge Planning Updated by [id number]: Josephine Roy on 10/03/19 10:[address] CM contacted Margarita Borges. this morning, the prior authorization for the patient's insurance was sent in 10/02, but she has not heard back from them as yet. DCP- Discharge Planning Updated by [id number]: Josephine Roy on 10/01/19 2:[address] CM met with patient to discuss initial discharge planning. Patient is in agreement to proceed with the assessment with her daughter present. Patient reports that she lives at home independently. Patient is alert/oriented, drowsy. Stairs/steps: 0. PCP: Dr. Parson. [facility]acy[facility]. Patient states she have been able to obtain all of her prescribed medications. HHS: No. DME: Walker, w/c, shower chair. Patient gives permission to speak with family members/care givers. Emergency contact: Kendra Holbrook (dtr POA) [phone]. 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 CM discussed the availability of HH, Rehab, DME services. Patient's daughter request [facility] for Dc plan. Patient's insurance will require prior authorization. Patient denies being hospitalized within the past 30 days. Patient denies the use of community resources SPOOL MAKER. Transportation at time of discharge: Facility. CM will assist with DC plans/needs PRN. DCP- Discharge Planning Updated by [id number]: Josephine Roy on 10/01/19 11:[address] Faxed required information to Margarita Qureshier with [facility] per family request. DCPIA - Discharge Planning Initial Assessment Updated by [email or web address]: Josephine Roy on 10/01/19 12:35 pm * Is the patient Alert and Oriented? Yes * How many steps to enter\exit or inside your home? * PCP Dr. Parson * Pharmacy [facility] * Preadmission Environment Home Alone * ADLs Independent * Equipment Shower Chair Walker Wheelchair * List name and contact numbers for known caregivers / representatives who currently or will assist patient after discharge: Kendra Holbrook (dtr) [phone] * Verbal permission to speak to the caregivers and representatives has been obtained from the patient. Yes * Community resources currently utilized None * Please name any agencies selected above. [facility]. * Additional services required to return to the preadmission environment? No * Can the patient safely return to the preadmission environment? Yes * Has this patient been hospitalized within the prior 30 days at any hospital? No Coverage Notice Reviewer: [id number] Susannah Thomas Notice Issued Date-Time: 09/30/2019 16:01 Notice Type: IM Admission Notice Notice Delivered To: Patient Relationship to Patient: Airplane Tube Builder Name: Delivery Method: HAND - Hand Delivered Evelina Days: Prior Verbal Notification: Recipient Understood Notice: Recipient Signature: Med Rec Note Co-signed by Attending: Coverage Notice Comment: signed in the ER. Last DP export: 10/03/19 1:04 p Patient Name: WAYLON DANIELLE Page [id number] at 1413 All edits/amendments must be made on the electronic document DICTATION DATE: 10/03/19 1413 KARATE TEACHER: BORIS 10/03/19 1413 RPT#: [id number] DC DATE: STATUS: ADM IN [facility] [address] [place] [address] END OF REPORT
--- NOTE | 2019-10-03 14:28 | MORECARE ---
CASE MANAGEMENT DISCHARGE SUMMARY PATIENT: WAYLON DANIELLE UNIT: [id number] ADM DATE: 09/30/19 AGE: 88 : [birth year] SEX: F ROOM/BED: D.1204 AUTHOR: YORDY,DOC PHYSICIAN: REFERRING PHYSICIAN: MARC FOSS DO DATE OF SERVICE: 10/03/19 Discharge Plan Patient Name: WAYLON DANIELLE Facility: [facility]:[place] : 1930 Planned Disposition: Half-Way Facility Anticipated Discharge Date: 10/03/19 Discharge Date: Expected LOS: 3 Initial Reviewer: [id number] Initial Review Date: 09/30/2019 Generated: 10/03/19 3:28 pm Comments DCP- Discharge Planning Updated by [id number]: Josephine Roy on 10/03/19 1:[address] Telephone call from [place], with patient's insurance and patient has been authorized to go into a skilled Medicare bed at [facility]. Auth #[id number]. The nursing facility cannot hot die picker today, but will hot die picker tomorrow @10:00. Patient will go into 303 and report can be called to [phone]. Patient will discharge to a Skilled Medicare bed. DCP- Discharge Planning Updated by [email or web address]: Josephine Roy on 10/03/19 10:[address] CM contacted Margarita BorgesJanessa this morning, the prior authorization for the patient's insurance was sent in 10/02, but she has not heard back from them as yet. DCP- Discharge Planning Updated by [id number]: Josephine Roy on 10/01/19 2:[address] CM met with patient to discuss initial discharge planning. Patient is in agreement to proceed with the assessment with her daughter present. Patient reports that she lives at home independently. Patient is alert/oriented, drowsy. Stairs/steps: 0. PCP: Dr. Parson. [facility]acy[facility]. Patient states she have been able to obtain all of her prescribed medications. HHS: No. DME: Walker, w/c, shower chair. Patient gives permission to speak with family members/care givers. Emergency contact: Kendra Holbrook (dtr POA) [phone]. 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 CM discussed the availability of HH, Rehab, DME services. Patient's daughter request [facility] for Dc plan. Patient's insurance will require prior authorization. Patient denies being hospitalized within the past 30 days. Patient denies the use of community resources DONATION SPECIALIST. Transportation at time of discharge: Facility. CM will assist with DC plans/needs PRN. DCP- Discharge Planning Updated by [id number]: Josephine Roy on 10/01/19 11:[address] Faxed required information to Margarita Qureshier with [facility] per family request. DCPIA - Discharge Planning Initial Assessment Updated by [email or web address]: Josephine Roy on 10/01/19 12:35 pm * Is the patient Alert and Oriented? Yes * How many steps to enter\exit or inside your home? * PCP Dr. Parson * Pharmacy [facility] * Preadmission Environment Home Alone * ADLs Independent * Equipment Shower Chair Walker Wheelchair * List name and contact numbers for known caregivers / representatives who currently or will assist patient after discharge: Kendra Holbrook (dtr) [phone] * Verbal permission to speak to the caregivers and representatives has been obtained from the patient. Yes * Community resources currently utilized None * Please name any agencies selected above. [facility]. * Additional services required to return to the preadmission environment? No * Can the patient safely return to the preadmission environment? Yes * Has this patient been hospitalized within the prior 30 days at any hospital? No Coverage Notice Reviewer: [id number] Susannah Thomas Notice Issued Date-Time: 09/30/2019 16:01 Notice Type: IM Admission Notice Notice Delivered To: Patient Relationship to Patient: Telecommunications Administrator Name: Delivery Method: HAND - Hand Delivered Evelina Days: Prior Verbal Notification: Recipient Understood Notice: Recipient Signature: Med Rec Note Co-signed by Attending: Coverage Notice Comment: signed in the ER. Last DP export: 10/03/19 1:13 p Patient Name: WAYLON DANIELLE Page [id number] at 1428 All edits/amendments must be made on the electronic document DICTATION DATE: 10/03/19 1429 MANAGER: BORIS 10/03/19 1428 RPT#: [id number] DC DATE: STATUS: ADM IN [facility] [address] [place] [address] END OF REPORT
--- NOTE | 2019-10-03 14:43 | NUR ---
Rehab continues to wait for insurance descision regarding inpatient rehab for this patient. Irina Apple RN Clinical Liaison, Rehab
[2019-10-03 16:03] VITALS: BP 134/77
--- NOTE | 2019-10-03 18:09 | NUR ---
CONTACTED RANJITH VILLALBA, PT DAUGHTER REGARDING PT BEING TRANSFERRED TO [facility] IN AM. FAMILY VOICES EXCITEMENT AND THANKED STAFF FOR ASSISTING WITH FINDING REHAB CARE FOR PT.
[2019-10-03 20:00] VITALS: BP 135/63
--- NOTE | 2019-10-03 20:00 | NUR ---
ALERT RESTING IN BED, DENIES PAIN OR NEEDS AT THIS TIME, IMOBLIZER BRACE INPLACE TO RIGHT LEG, SEE SHIFT ASSESSMENT, CALL LIGHT IN REACH
[2019-10-04 04:00] VITALS: BP 138/65
[2019-10-04 05:53] LABS: HEMATOCRIT 29.1 % (36.0-48.0); HEMOGLOBIN 9.6 g/dL (12-16); MCH 30.9 pg (26.0-34.0); MCV 93.6 fL (80.0-100.0); MEAN PLATELET VOLUME 9.1 fL (7.4-10.4); RBC 3.11 10x6/uL (4.00-5.40); RDW 15.6 % (11.5-14.5); WBC 6.9 10x3/uL (4.8-10.8)
[2019-10-04 06:04] LABS: PLATELET COUNT 221 10x3/uL (130-400)
[2019-10-04 06:05] LABS: ALBUMIN 2.4 g/dL (3.4-5.0); ALKALINE PHOSPHATASE 65 U/L (30-120); ALT (SGPT) 11 U/L (10-68); BILIRUBIN - TOTAL 0.93 mg/dL (0.2-1.3); CALC OSMOLALITY 269 mosm/kg (275-300); CALCIUM 7.9 mg/dL (8.5-10.1); CARBON DIOXIDE 28.1 mmol/L (21.0-32.0); CHLORIDE - SERUM 101 mmol/L (98-107); CREATININE - SERUM 0.7 mg/dL (0.6-1.3); GLUCOSE 104 mg/dL (74-106); MAGNESIUM - SERUM 2.2 mg/dL (1.8-2.4); POTASSIUM - SERUM 3.9 mmol/L (3.5-5.1); PROTEIN - SERUM 5.5 g/dL (6.4-8.2); SODIUM 134 mmol/L (136-145); UREA NITROGEN 18 mg/dL (7-18); eGFR NON AFRICAN AMERICAN 83 mL/min (90-120)
[2019-10-04 07:17] LABS: LYMPHOCYTES 11 % (15-50); MONOCYTES 4 % (2-11); NEUTROPHILS 83 % (40-80); PLATELET ESTIMATE NORMAL
[2019-10-04 07:53] VITALS: BP 125/61
--- NOTE | 2019-10-04 07:58 | NUR ---
AWAKE AND ALERT. ORIENTED X3.HAD SMALL AMOUNT OF WATERY STOOL. CONTINUES TO REQUEST ENEMA OR "SHE WILL ". WILL MONITOR. LUNGS ARE CLEAR BUT DIMINISHED IN LOWER LOBES, NO COUGH NOTED. SKIN IS INTACT WITHOUT REDNESS. SL TO LEFT FOREARM IS PATENT WITHOUT REDNESS AT INSERTION SITE. DENIES NEEDS.
--- NOTE | 2019-10-04 09:27 | NUR ---
GIVEN FLEETS ENEMA. SMALL AMOUNT OF FORMED STOOL RETURNED. NO IMPACTION PALPATED WITH INSERTION. SITTING UP IN BED EATING BREAKFAST. DENIES NEEDS.
--- NOTE | 2019-10-04 09:30 | NUR ---
REPORT CALLED TO JAMEEL CHA RN AT [facility]. ALL QUESTIONS ANSWERED.
--- NOTE | 2019-10-04 09:50 | NUR ---
DR. FOSS RENEWED ELIQUIS AND ULTRAM FOR DISCHARGE.
[2019-10-04] MEDS ORDERED: ULTRAM50 MG PO (09:55)
[2019-10-04] MEDS ORDERED: ELIQUIS5 MG PO (09:55)
--- NOTE | 2019-10-04 10:00 | NUR ---
UP TO [facility]. INCONTINENT OF LOOSE WATERY STOOL. SOME SOFT FORMED STUFF ALSO. SKIN CARE PER STAFF. CLOTHES CHANGED.
--- NOTE | 2019-10-04 10:22 | NUR ---
DISCHARGED TO [facility] VIA THEIR TRANSPORT. DAUGHTER AT BEDSIDE.
--- NOTE | 2019-10-06 13:12 | MORECARE ---
CASE MANAGEMENT DISCHARGE SUMMARY PATIENT: DEBORAH WHITFIELD UNIT: [id number] ADM DATE: 09/30/19 AGE: 88 : [birth year] SEX: F ROOM/BED: D.1204 AUTHOR: YORDY,DOC PHYSICIAN: REFERRING PHYSICIAN: MARC FOSS DO DATE OF SERVICE: 10/06/19 Discharge Plan Patient Name: DEBORAH WHITFIELD Facility: [facility]:[place] : 1930 Planned Disposition: Fpc Facility Anticipated Discharge Date: 10/03/19 Discharge Date: 10/04/2019 Expected LOS: 3 Initial Reviewer: [email or web address] Initial Review Date: 09/30/2019 Generated: 10/06/19 2:12 pm Comments DCP- Discharge Planning Updated by [id number]: Josephine Roy on 10/03/19 1:[address] Telephone call from [place], with patient's insurance and patient has been authorized to go into a skilled Medicare bed at [facility]. Auth #[id number]. The nursing facility cannot pickle processor today, but will pickle processor tomorrow @10:00. Patient will go into 303 and report can be called to [phone]. Patient will discharge to a Skilled Medicare bed. DCP- Discharge Planning Updated by [id number]: Josephine Roy on 10/03/19 10:[address] CM contacted Margarita BorgesJanessa this morning, the prior authorization for the patient's insurance was sent in 10/02, but she has not heard back from them as yet. DCP- Discharge Planning Updated by [id number]: Josephine Roy on 10/01/19 2:[address] CM met with patient to discuss initial discharge planning. Patient is in agreement to proceed with the assessment with her daughter present. Patient reports that she lives at home independently. Patient is alert/oriented, drowsy. Stairs/steps: 0. PCP: Dr. Parson. [facility]. Patient states she have been able to obtain all of her prescribed medications. HHS: No. DME: [facility], w/c, shower chair. Patient gives permission to speak with family members/care givers. Emergency contact: Kendra Holbrook (dtr POA) [phone]. 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 CM discussed the availability of HH, Rehab, DME services. Patient's daughter request [facility] for Dc plan. Patient's insurance will require prior authorization. Patient denies being hospitalized within the past 30 days. Patient denies the use of community resources AQUATICS MANAGER. Transportation at time of discharge: Facility. CM will assist with DC plans/needs PRN. DCP- Discharge Planning Updated by [id number]: Josephine Roy on 10/01/19 11:[address] Faxed required information to Margarita Ayon with [facility] per family request. DCPIA - Discharge Planning Initial Assessment Updated by [id number]: Josephine Roy on 10/01/19 12:35 pm * Is the patient Alert and Oriented? Yes * How many steps to enter\exit or inside your home? * PCP Dr. Parson * [facility]acy [facility] * Preadmission Environment Home Alone * ADLs Independent * Equipment Shower Chair Walker Wheelchair * List name and contact numbers for known caregivers / representatives who currently or will assist patient after discharge: Kendra Holbrook (dtr) [phone] * Verbal permission to speak to the caregivers and representatives has been obtained from the patient. Yes * Community resources currently utilized None * Please name any agencies selected above. [facility] upon Discharge. * Additional services required to return to the preadmission environment? No * Can the patient safely return to the preadmission environment? Yes * Has this patient been hospitalized within the prior 30 days at any hospital? No Coverage Notice Reviewer: [id number] Susannah Thomas Notice Issued Date-Time: 09/30/2019 16:01 Notice Type: IM Admission Notice Notice Delivered To: Patient Relationship to Patient: Public Services Librarian Name: Delivery Method: HAND - Hand Delivered Evelina Days: Prior Verbal Notification: Recipient Understood Notice: Recipient Signature: Med Rec Note Co-signed by Attending: Coverage Notice Comment: signed in the ER. Reviewer: [id number] - Josephine Roy Notice Issued Date-Time: 10/04/2019 9:14 Notice Type: IM Discharge Notice Notice Delivered To: Patient Relationship to Patient: Self Public Services Librarian Name: Edborah Whitfield Delivery Method: HAND - Hand Delivered Evelina Days: Prior Verbal Notification: Recipient Understood Notice: Recipient Signature: Yes Med Rec Note Co-signed by Attending: Coverage Notice Comment: DC IMM delivered to and signed by patient. Original given to patent and copy on the chart. Last DP export: 10/03/19 1:28 p Patient Name: DEBORAH WHITFIELD Page [id number] at 1312 All edits/amendments must be made on the electronic document DICTATION DATE: 10/06/19 1312 PIPE BOWLS PAINT TRIMMER: BORIS 10/06/19 1312 RPT#: [id number] DC DATE:10/04/19 STATUS: DIS IN [facility] [address] [facility] [place] [address] END OF REPORT
== END 2019-10-04 10:23 | DRG 534 ==
LOC: D.ER 14:38 → D.M3 17:14
PROVIDERS: Family Medicine; ADMIT Family Medicine; ATTEND Family Medicine
DX: S72.401A Unspecified fracture of lower end of right femur, initial encounter for closed fracture (principal); I48.20 Chronic atrial fibrillation, unspecified; W17.89XA Other fall from one level to another, initial encounter; E87.6 Hypokalemia; I11.0 Hypertensive heart disease with heart failure; I50.9 Heart failure, unspecified; D64.9 Anemia, unspecified